=== PATIENT | female | born 1990 | race Caucasian/White ===

== ENCOUNTER → 2016-11-07 | Outpatient (REF) | payer OTHER ==
[~2016-11-07] MED LIST: ACET50TA PO; IBUP60TA PO; VITAPRTA PO
== END ==
LOC: M LAB REF 12:58
PROVIDERS: ATTEND Advanced Practice Midwife
DX: Z86.14 Personal history of Methicillin resistant Staphylococcus aureus infection (principal)

== ENCOUNTER → 2016-11-25 | Outpatient (CLI) | payer OTHER ==
[2016-11-25 19:10] LABS: BASO % 0.3 % (0.0-1.0); EOS # 0.1 K/mm3 (0.0-0.50); EOS % 0.8 % (0.0-3.0); LARGE UNSTAINED CELL # 0.2 K/mm3 (0.0-0.4); LARGE UNSTAINED CELL % 2.1 % (0.0-4.0); LYMPH % 12.3 % (24.0-44.0); MEAN CORPUSCULAR HEMOGLOBIN 30.8 pg (27.0-33.0); MEAN CORPUSCULAR HGB CONC 33.7 g/dl (32.0-36.5); MEAN CORPUSCULAR VOLUME 91.4 fl (80.0-96.0); MONO # 0.6 K/mm3 (0.0-0.8); MONO % 6.7 % (0.0-5.0); NEUTROPHILS # 6.6 K/mm3 (1.8-7.7); NEUTROPHILS % 77.7 % (36.0-66.0); PLATELET COUNT, AUTOMATED 199 k/mm3 (150-450); RED CELL DISTRIBUTION WIDTH 12.1 % (11.5-14.5); WHITE BLOOD COUNT 8.4 K/mm3 (4.0-10.0)
[2016-11-26 08:40] LABS: CONTROL LINE INT CTR LINE PRESENT; HIV SCRN NEGATIVE (NEGATIVE); HIV SCRN1 NEGATIVE (NEGATIVE)
[2016-11-27 09:55] LABS: HBsAg Prenatal NEGATIVE (NEGATIVE)
== END ==
LOC: M SMT 13:31
PROVIDERS: ATTEND Advanced Practice Midwife
DX: Z34.81 Encounter for supervision of other normal pregnancy, first trimester (principal)

== ENCOUNTER → 2017-01-01 | Outpatient (REF) | payer OTHER | LOC: M LAB REF 13:11 | PROVIDERS: ATTEND Advanced Practice Midwife | DX: Z34.82 Encounter for supervision of other normal pregnancy, second trimester (principal) ==

== ENCOUNTER → 2017-01-20 | Outpatient (CLI) | payer OTHER ==
--- NOTE | 2017-01-20 15:20 | REP ---
Clinical: Anatomical evaluation. Comparison: None . Findings: Examination demonstrates a single live intrauterine in transverse (head to the maternal left side) presentation. motion is identified by technologist. Placenta is noted anteriorly and grade zero without evidence for placenta previa or abruption. Amniotic fluid volume is normal. Cervix measures 3.4 cm in length and appears closed. No evidence for nuchal cord. Gestational age by current measurements 18 weeks 4 days with ALLY 06/19/2017 . FHR equals 153 beats per minute. BPD 4.0 cm 18 weeks 0 days HC 15.4 cm 18 weeks 3 days AC 13.4 cm 18 weeks 6 days FL 3.0 cm 19 weeks 2 days HL 2.8 cm 18 weeks 6 days HC/AC ratio 1.15 Estimated weight 265 grams ( 61st percentile). Anatomical assessment demonstrates normal structures including cranium, choroid plexus, cavum, cerebellum/posterior fossa, facial features, lungs, four-chamber heart/right ventricular outflow tracts, diaphragm, stomach, cord insertion/three-vessel cord, kidneys/bladder, spine, and extremities. Limited evaluation of the left cardiac ventricular outflow tract. Impression: Single live intrauterine in transverse lie. With the exception of the left ventricular outflow tract, anatomical assessment is complete and normal. Signed by Gm Booker MD 01/20/2017 03:12 P
== END ==
LOC: M SMT 13:56
PROVIDERS: ATTEND Advanced Practice Midwife
DX: Z36 Encounter for antenatal screening of mother (principal); Z3A.18 18 weeks gestation of pregnancy

== ENCOUNTER → 2017-02-07 | Outpatient (REF) | payer OTHER | LOC: M LAB REF 09:00 | PROVIDERS: ATTEND Advanced Practice Midwife | DX: Z36 Encounter for antenatal screening of mother (principal); Z3A.00 Weeks of gestation of pregnancy not specified ==

== ENCOUNTER → 2017-03-05 | Outpatient (CLI) | payer OTHER ==
--- NOTE | 2017-03-06 05:48 | REP ---
Clinical: Anatomical evaluation. Comparison: 01/20/2017 . Findings: Examination demonstrates a single live intrauterine in cephalic presentation. motion is identified by technologist. Placenta is noted anteriorly and grade zero without evidence for placenta previa or abruption. Amniotic fluid volume is normal. Cervix measures 4.6 cm in length and appears closed. No evidence for nuchal cord. Gestational age by first ultrasound 24 weeks 6 days with ALLY 06/19/2017 . Gestational age by current measurements 24 weeks 0 days with ALLY 06/25/2017 . FHR equals 150 beats per minute. Estimated weight 728 grams ( 41st percentile). Anatomical assessment demonstrates normal structures including cranium, choroid plexus, cavum, cerebellum/posterior fossa, facial features, lungs, four-chamber heart/ventricular outflow tracts, diaphragm, stomach, cord insertion/three-vessel cord, kidneys/bladder, spine, and extremities. Impression: Single live intrauterine in cephalic presentation demonstrating appropriate interval growth. Anatomical assessment is complete and normal. Signed by Gm Booker MD 03/06/2017 05:40 A
== END ==
LOC: M SMT 14:03
PROVIDERS: ATTEND Advanced Practice Midwife
DX: Z36 Encounter for antenatal screening of mother (principal); Z3A.24 24 weeks gestation of pregnancy

== ENCOUNTER → 2017-03-26 | Outpatient (CLI) | payer OTHER ==
[2017-03-26 10:25] LABS: MEAN CORPUSCULAR HEMOGLOBIN 32.8 pg (27.0-33.0); MEAN CORPUSCULAR HGB CONC 34.9 g/dl (32.0-36.5); MEAN CORPUSCULAR VOLUME 93.9 fl (80.0-96.0); RED CELL DISTRIBUTION WIDTH 12.5 % (11.5-14.5); WHITE BLOOD COUNT 10.1 K/mm3 (4.0-10.0)
== END ==
LOC: M LAB 08:48
PROVIDERS: ATTEND Advanced Practice Midwife
DX: Z34.82 Encounter for supervision of other normal pregnancy, second trimester (principal)

== ENCOUNTER → 2017-05-20 | Outpatient (REF) | payer OTHER ==
[~2017-05-20] MED LIST changes: +IBUP-1114 PO; +PRENTAB9 PO
== END ==
LOC: M LAB REF 17:13
PROVIDERS: ATTEND Advanced Practice Midwife
DX: Z36 Encounter for antenatal screening of mother (principal); Z3A.00 Weeks of gestation of pregnancy not specified

== ENCOUNTER 2017-06-12 08:47 | Inpatient (IN) | payer OTHER ==
[2017-06-12] VITALS (10 sets, daily range): BP systolic 110–136; BP diastolic 59–88
[~2017-06-12] VITALS: Ht 142.2 cm; Wt 57.0 kg
[~2017-06-12 08:47] MED LIST changes: -IBUP-1114 PO; -PRENTAB9 PO
[2017-06-12] MEDS ORDERED: OXYTOCIN 30 UNITS IN 0.9% NaCl 500ML IV BAG (J2590) As Ordered ONE (09:27)
[2017-06-12 09:46] LABS: MEAN CORPUSCULAR HEMOGLOBIN 29.4 pg (27.0-33.0); MEAN CORPUSCULAR HGB CONC 34.3 g/dl (32.0-36.5); MEAN CORPUSCULAR VOLUME 85.5 fl (80.0-96.0); RED CELL DISTRIBUTION WIDTH 14.3 % (11.5-14.5); WHITE BLOOD COUNT 14.4 K/mm3 (4.0-10.0)
[2017-06-12] MEDS ORDERED: BUTORPHANOL 2 MG/ML INJ (J0595) IV ONE (10:00)
[2017-06-12] MEDS ORDERED: PROMETHAZINE INJ 25 MG/ML VIAL (J2550) IV ONE (10:00)
[2017-06-12] MEDS ORDERED: NALOXONE INJ 0.4 MG/1 ML VIAL (J2310) As Ordered ONE (10:05)
[2017-06-12] MEDS ORDERED: DIBUCAINE 1% OINTMENT 30GM TOP PRN (10:45)
[2017-06-12] MEDS ORDERED: RHOGAM 300 MCG (1500 IU) INJ (J2790) IM SCH (10:45)
[2017-06-12] MEDS ORDERED: DOCUSATE SODIUM 100 MG CAP PO PRN (10:45)
[2017-06-12] MEDS ORDERED: MOM 30ML SUSPENSION UDC PO PRN (10:45)
[2017-06-12] MEDS ORDERED: METHYLERGONOVINE MALEATE 0.2 MG TAB PO PRN (10:45)
[2017-06-12] MEDS ORDERED: MEASLES,MUMPS,RUBELLA VACCINE INJ (MMR-II) (90707) SC SCH (10:45)
[2017-06-12] MEDS ORDERED: PROMETHAZINE 25 MG TAB PO PRN (10:45)
[2017-06-12] MEDS ORDERED: OXYTOCIN INJ 10 UNITS/ML VIAL (J2590) IM ONE (10:45)
[2017-06-12] MEDS ORDERED: OXYTOCIN DRIP 30 UNITS in APPROPRIATE DILUENT 1 EA IV SCH (11:03)
[2017-06-12] MEDS: PRENATAL VITAMINS CHEWABLE TABLET PO SCH (11:18)
[2017-06-12] MEDS: METHYLERGONOVINE MALEATE 0.2 MG TAB PO SCH ×2 (11:18→18:21)
--- NOTE | 2017-06-12 13:46 | HPE ---
DATE OF ADMISSION: 06/12/2017 CHIEF COMPLAINT: Labor. HISTORY OF PRESENT ILLNESS: The patient is a 26-year-old, (G) 4, para (P) 2-0-1-2, at 39 weeks 3 days gestation with an estimated date of confinement of 06/16/2017 by first trimester ultrasound dated 11/07/2016. She presents complaining of contractions and active labor. She states that her contractions started last night and picked up about an hour before her arrival. They last 45 seconds to 1 minute and are every 3 minutes. She denies leakage of fluid, states that she has been spotting a little bit, but denies discharge. She is feeling the baby move. LABS: Blood type is O positive. She is GBS negative. Rubella immune. HIV negative. Gonorrhea and Chlamydia negative. Hepatitis B antigen negative. VDRL nonreactive. Urine culture showed no growth. Her prepregnancy weight was 106 pounds. Blood pressures in the office have been ranging from 100 to 136 systolic over 60 to 72 diastolic. OB ULTRASOUND: From 03/05/2017, showed anterior placenta without previa or abruption, no abnormalities. PAST OBSTETRICAL HISTORY: 1. In 2011, she delivered a female at 38 weeks gestation via normal spontaneous vaginal delivery weighing 6 pounds 13 ounces. 2. In 2012, she had a miscarriage at 7 weeks. 3. In 2015, she delivered a male at 40 weeks 5 days gestation via normal spontaneous vaginal delivery weighing 7 pounds 12 ounces. PAST MEDICAL HISTORY: None. MEDICATIONS: - Protonix 20 mg daily - prenatals PAST SURGICAL HISTORY: 1. Laparoscopy for ovarian cyst. 2. Two ulnar surgeries right arm. 3. MRSA removal right arm. ALLERGIES: - SULFA MEDICATIONS SOCIAL HISTORY: The patient is single. Denies tobacco, alcohol or drugs. PHYSICAL EXAMINATION: ABDOMEN: Gravid. SVE: 7/100%/bulging bag. FHR: 140 beats per minute, moderate variability, accelerations, no decelerations, Category 1 tracing. TOCO: Contractions every 3 minutes. ASSESSMENT AND PLAN: 1. 26-year-old, G4, P2-0-1-2, at 39 weeks 3 days gestation in active labor. Admit to labor and delivery with routine labs and orders. 2. GBS negative. No antibiotics required. 3. Anticipate spontaneous vaginal delivery. My preceptor for this patient encounter was Lida Ortiz CNM. The preceptor was physically present in the building during the encounter and was fully available. As needed, all aspects of the patient interview, examination, medical decision making process, and medical care plan development were reviewed and approved by the preceptor. The preceptor is aware and concurs with the plan as stated in the body of this note and will attest to such by his/her cosignature. ZAIN
[2017-06-12] MEDS: IBUPROFEN 800 MG TAB PO PRN (15:50)
[2017-06-12] MEDS: ACETAMINOPHEN 500 MG TAB PO PRN (21:34)
[2017-06-13] MEDS: METHYLERGONOVINE MALEATE 0.2 MG TAB PO SCH ×2 (00:32→05:51)
[2017-06-13 06:15] VITALS: BP 132/85
[2017-06-13] MEDS: PRENATAL VITAMINS CHEWABLE TABLET PO SCH (07:42)
[2017-06-13] MEDS: IBUPROFEN 800 MG TAB PO PRN (07:43)
[2017-06-13] MEDS ORDERED: METHYLERGONOVINE MALEATE 0.2 MG TAB PO PRN (12:00)
[2017-06-13 18:16] VITALS: BP 113/73
[2017-06-14] MEDS: ACETAMINOPHEN 500 MG TAB PO PRN (02:07)
[2017-06-14 06:00] VITALS: BP 129/70
[2017-06-14] MEDS: IBUPROFEN 800 MG TAB PO PRN (07:38)
[2017-06-14] MEDS: PRENATAL VITAMINS CHEWABLE TABLET PO SCH (07:38)
[2017-06-14] MEDS ORDERED: ACET50TA PO (09:34)
[2017-06-14] MEDS ORDERED: IBUP-1114 PO (09:34)
[2017-06-14] MEDS ORDERED: PRENTAB9 PO (09:34)
--- NOTE | 2017-06-14 15:57 | DN ---
DATE: 06/12/2017 Artificial rupture of membranes clear fluid 09:37. Fully dilated at 10:12 with spontaneous bearing down efforts. Viable male delivered YANI, compound right posterior arm at 10:17. Spontaneous respirations with stimulation transitioned on maternal abdomen. Cord doubly clamped and cut by grandmother once pulsations ceased. 's 8 and 9. Placenta Brown intact with three-vessel cord at 10:24. Fundus firmed with massage and IM Pitocin 10 units. Perineum is intact. Estimated blood loss 150 mL. weight is pending. Sponge, sharp and instrument count correct. Mom and baby doing well.
== END 2017-06-14 10:30 | disposition home or self-care (01) | DRG 775 ==
LOC: M LDO 08:47 → M LDI 09:19 → EEVIPCON 09:19 → M OBS 12:29
PROVIDERS: ADMIT Advanced Practice Midwife; ATTEND Advanced Practice Midwife
PROC: 10E0XZZ Delivery of Products of Conception, External Approach (ICD-10-PCS; principal; 2017-06-12)
PROC: 10907ZC Drainage of Amniotic Fluid, Therapeutic from Products of Conception, Via Natural or Artificial Opening (ICD-10-PCS; 2017-06-12)
DX: O32.6XX0 Maternal care for compound presentation, not applicable or unspecified (principal); Z3A.39 39 weeks gestation of pregnancy; Z37.0 Single live birth

== ENCOUNTER → 2017-08-19 | Outpatient (CLI) | payer OTHER ==
[~2017-08-19] MED LIST changes: +IBUP-1114 PO; +PRENTAB9 PO
--- NOTE | 2017-08-19 12:52 | REP ---
Right hand four views: There is a nondisplaced fracture at the base of the fifth digit metacarpal. There is no dislocation. The study is otherwise unremarkable. Signed by Philippe Quintero MD 08/19/2017 12:42 P
== END ==
LOC: M WUC 11:15
PROVIDERS: ATTEND Physician Assistant
DX: S62.306A Unspecified fracture of fifth metacarpal bone, right hand, initial encounter for closed fracture (principal); X58.XXXA Exposure to other specified factors, initial encounter; Y92.89 Other specified places as the place of occurrence of the external cause; Y93.89 Activity, other specified; Y99.8 Other external cause status

== ENCOUNTER → 2017-11-24 | Outpatient (REF) | payer OTHER ==
[2017-11-24 23:39] LABS: CHLAMYDIA DNA AMPLIFICATION NEGATIVE (NEGATIVE); GC DNA AMPLIFICATION NEGATIVE (NEGATIVE)
== END ==
LOC: M LAB REF 17:24
DX: R30.0 Dysuria (principal)

== ENCOUNTER → 2018-11-02 | Outpatient (REF) | payer OTHER, MEDICAID ==
[~2018-11-02] MED LIST changes: -ACET50TA PO; +MAPA500T2 PO
[2018-11-02 18:06] LABS: BASO % 0.7 % (0.0-1.0); EOS # 0.2 10^3/uL (0.0-0.50); HEMATOCRIT 43.6 % (36.0-47.0); LYMPH # 2.1 10^3/uL (1.5-6.5); LYMPH % 33.9 % (24.0-44.0); MEAN CORPUSCULAR HEMOGLOBIN 32.1 pg (27.0-33.0); MEAN CORPUSCULAR HGB CONC 34.4 g/dl (32.0-36.5); MEAN CORPUSCULAR VOLUME 93.2 fl (80.0-96.0); MONO # 0.5 10^3/uL (0.0-0.8); MONO % 7.8 % (0.0-5.0); NEUTROPHILS # 3.3 10^3/uL (1.8-7.7); NEUTROPHILS % 54.4 % (36.0-66.0); PLATELET COUNT, AUTOMATED 184 10^3/uL (150-450); RED BLOOD COUNT 4.68 10^6/uL (4.00-5.40); WHITE BLOOD COUNT 6.1 10^3/uL (4.0-10.0)
[2018-11-02 18:15] LABS: ALBUMIN 4.4 GM/DL (3.2-5.2); ALT/SGPT 24 U/L (12-78); BILIRUBIN,TOTAL 0.8 MG/DL (0.2-1.0); BLOOD UREA NITROGEN 13 MG/DL (7-18); CALCIUM LEVEL 8.6 MG/DL (8.5-10.1); CARBON DIOXIDE LEVEL 26 MEQ/L (21-32); CHLORIDE LEVEL 106 MEQ/L (98-107); CHOLESTEROL LEVEL 185 MG/DL (<200); CHOLESTEROL RISK RATIO 3.245 (<5); CREATININE FOR GFR 0.63 MG/DL (0.55-1.30); GLOMERULAR FILTRATION RATE > 60.0 (>60); GLUCOSE, FASTING 82 MG/DL (70-100); HDL CHOLESTEROL 57 MG/DL (>40); LDL CHOLESTEROL 115 MG/DL (<100); NON-HDL-C 128 MG/DL; POTASSIUM SERUM 4.4 MEQ/L (3.5-5.1); SODIUM LEVEL 138 MEQ/L (136-145); THYROID STIMULATING HORMONE 0.309 uIU/ML (0.358-3.740); TOTAL PROTEIN 8.1 GM/DL (6.4-8.2); TRIGLYCERIDES LEVEL 65 MG/DL (<150)
[2018-11-02 18:18] LABS: TOTAL 25(OH) VITAMIN D 26.1 NG/ML (30.0-100.0)
[2018-11-02 18:27] LABS: HEMOGLOBIN A1c 4.6 %
== END ==
LOC: M LAB REF 17:32
PROVIDERS: ATTEND Nurse Practitioner Family
DX: Z13.9 Encounter for screening, unspecified (principal)

== ENCOUNTER → 2018-11-10 | Outpatient (CLI) | payer OTHER ==
--- NOTE | 2018-11-13 10:20 | SLEEPHOME ---
DATE OF STUDY: 11/10/2018 ORDERED BY: Dr. Laurent Diagnostic home sleep testing was performed for evaluation in light of concern for the obstructive sleep apnea syndrome in this patient with history of excessive somnolence and nonrestorative sleep. For testing a nocturnal T3 respiratory monitoring device was used. Continuous record was made of pulse, oxygen saturation, airflow, chest and abdominal strain, and body position. 9 hours and 59 minutes of data were reviewed. There were 8 hours 24 minutes marked as time in bed. During the interval marked time in bed there only 7 respiratory events identified of 10 seconds in duration or greater for a respiratory event index well within normal limits at 0.8. The events that were seen were both mixed and obstructive. The baseline pulse rate was 74 beats per minute, pulse rate range was 59-170. Baseline saturation 96%, pulse oxygen saturation appreciated 93%. Testing was performed in both the supine and nonsupine positions. Snoring was noted over the course of study. IMPRESSION: Normal diagnostic home sleep testing with snoring. No recommendations.
== END ==
LOC: M SLEEP HO 14:04
PROVIDERS: ATTEND Internal Medicine Pulmonary Disease
DX: R06.83 Snoring (principal)

== ENCOUNTER → 2019-02-02 | Outpatient (CLI) | payer OTHER ==
[~2019-02-02] MED LIST changes: +IBUP600T42 PO; -IBUP60TA PO
--- NOTE | 2019-02-04 07:48 | SLEEPMSLT ---
DATE OF PROCEDURE: 02/02/2019 ORDERING PROVIDER: Dr. Mary Lou Laurent, copy to Cookie Bolivar NP INTERPRETATION: Nocturnal polysomnography was followed by multiple sleep latency testing for evaluation of sleep physiology in this patient with a history of excessive somnolence, morning headaches, nonrestorative sleep, who has had a reasonably normal home sleep test result. During the nocturnal portion of testing 7 hours and 16 of data were reviewed. There were 414 minutes of sleep identified. Sleep latency was short at 1 minute. REM latency was similarly short at 68 minutes. Sleep architecture was fairly good with 5 REM cycles, minimal fragmentation. Overall efficiency was 96.5%. The electrocardiogram showed a sinus rhythm with an average heart rate of 70 beats per minute. Rate ranged 60-90 beats per minute. EEG showed normal waveforms for awake and sleep stages. No focal events were identified with only one respiratory events identified of 10 seconds in duration or greater for an apnea-hypopnea index well within normal limits of 0.1. There was some snoring identified. However arousals from respiratory events were seen only 0.6 times per hour. There was activity noted in the limb leads. No trains of events were identified and limb movement arousal index of 3.2 per hour. Oxygen saturations remained 90% plus. Nocturnal polysomnography was followed by multiple sleep latency testing. Five nap opportunities were offered at 2-hour intervals. Sleep was achieved on five of five nap opportunities with a mean sleep latency of 5 minutes and sleep onset REM was appreciated on three of the nap opportunities. IMPRESSION: Normal nocturnal polysomnography with short sleep latency on multiple sleep latency testing and three sleep onset REM. Drug panel testing was performed but results are pending at the time of this dictation. These results collaborate patient's history of excessive somnolence and with the sleep onset REM periods, would support clinical diagnosis of narcolepsy.
== END ==
LOC: M SLEEP 19:56
PROVIDERS: ATTEND Internal Medicine Pulmonary Disease
DX: G47.00 Insomnia, unspecified (principal)

== ENCOUNTER → 2019-04-15 | Outpatient (REF) | payer OTHER ==
[2019-04-15 18:11] LABS: CHLAMYDIA DNA AMPLIFICATION NEGATIVE (NEGATIVE); GC DNA AMPLIFICATION NEGATIVE (NEGATIVE)
== END ==
LOC: M LAB REF 16:32
PROVIDERS: ATTEND Physician Assistant
DX: Z11.3 Encounter for screening for infections with a predominantly sexual mode of transmission (principal)

== ENCOUNTER → 2019-08-31 | Outpatient (REF) | payer OTHER, MEDICAID ==
[2019-08-31 16:26] LABS: FREE T4 1.02 NG/DL (0.76-1.46); THYROID STIMULATING HORMONE 0.251 uIU/ML (0.358-3.740)
[2019-08-31 16:31] LABS: TOTAL T3 131.4 NG/DL (60.0-181.0)
== END ==
LOC: M LAB REF 15:06
PROVIDERS: ATTEND Nurse Practitioner Family
DX: F41.1 Generalized anxiety disorder (principal); Z13.9 Encounter for screening, unspecified

== ENCOUNTER → 2019-09-30 | Outpatient (REF) | payer OTHER | LOC: M LAB REF 12:15 | PROVIDERS: ATTEND Nurse Practitioner Family | DX: R11.2 Nausea with vomiting, unspecified (principal) ==

== ENCOUNTER → 2019-11-30 | Outpatient (REF) | payer OTHER | LOC: M LAB REF 17:33 | PROVIDERS: ATTEND Nurse Practitioner Family | DX: E05.90 Thyrotoxicosis, unspecified without thyrotoxic crisis or storm (principal) ==

== ENCOUNTER → 2020-02-29 | Outpatient (CLI) | payer OTHER ==
--- NOTE | 2020-03-01 02:02 | REP ---
Clinical: Right foot pain Technique: AP, lateral, bilateral oblique views right foot . Findings: The osseous structures and joint spaces are intact and normal. There is no evidence for acute fracture or dislocation. Surrounding soft tissues are unremarkable. No subcutaneous emphysema or radiodense foreign body. Impression: Normal age appropriate right foot series. No acute fracture or dislocation. Electronically Signed by Gm Booker MD 03/01/2020 01:53 A
== END ==
LOC: M RAD 17:44
PROVIDERS: ATTEND Nurse Practitioner Family
DX: M79.671 Pain in right foot (principal)

== ENCOUNTER → 2020-03-01 | Outpatient (CLI) | payer OTHER ==
[2020-03-01 12:32] LABS: FREE T4 1.09 NG/DL (0.76-1.46); THYROID STIMULATING HORMONE 0.622 uIU/ML (0.358-3.740); TOTAL T3 100.5 NG/DL (60.0-181.0)
== END ==
LOC: M LAB 11:10
PROVIDERS: ATTEND Nurse Practitioner Family
DX: R94.6 Abnormal results of thyroid function studies (principal)

== ENCOUNTER 2020-06-16 13:23 | Emergency (ER) | payer OTHER ==
[~2020-06-16] VITALS: Ht 142.2 cm; Wt 49.7 kg
[2020-06-16 14:23] LABS: BASO % 0.5 % (0.0-1.0); EOS # 0.2 10^3/uL (0.0-0.5); EOS % 1.9 % (0.0-3.0); LYMPH # 1.2 10^3/uL (1.5-5.0); MEAN CORPUSCULAR VOLUME 91.3 fl (80.0-96.0); MONO # 0.7 10^3/uL (0.0-0.8); MONO % 8.3 % (0.0-5.0); NEUTROPHILS # 6.7 10^3/uL (1.5-8.5); PLATELET COUNT, AUTOMATED 195 10^3/uL (150-450); RED BLOOD COUNT 4.38 10^6/uL (4.00-5.40); WHITE BLOOD COUNT 8.9 10^3/uL (4.0-10.0)
--- NOTE | 2020-06-16 14:46 | REPVR ---
PROCEDURE INFORMATION: Exam: US First Trimester, Transabdominal Exam date and time: 06/16/2020 2:05 PM Age: 30 years old Clinical indication: Lmp or gestational age (in weeks): 10w0d; Antepartum complications; Bleeding; ; Additional info: Vaginal bleeding TECHNIQUE: Imaging protocol: Real-time transabdominal obstetrical ultrasound of the maternal pelvis and a first trimester , less than 14 weeks 0 days, with image documentation. COMPARISON: No relevant prior studies are available. FINDINGS: Last menstrual period: 04/07/20. Estimated gestational age (LMP) = 10 weeks 0 days. Estimated due date (LMP) = 01/12/21. Gestation: Intrauterine gestation. Embryonic/ heart rate: 171 bpm. Placenta: . Unremarkable. No subchorionic bleed. Amniotic fluid: Amniotic fluid is normal for gestational age. BIOMETRY: Gestational age (AUA): 10 weeks 1 day. Estimated due date (AUA): 01/11/21. Mean sac diameter: 47.0 mm = 10 weeks 2 days. [place]-Rump length: 32.1 mm = 10 weeks 1 day. MATERNAL: Uterus: 11.7 x 7.4 x 9.4 cm. Anteverted. A intramural/subserosal fibroid in the anterior uterus is 3.1 x 2.8 x 2.1 cm. Cervix: Unremarkable. Closed. Right adnexa: Unremarkable. The right ovary is 3.5 x 1.9 x 1.6 cm. RI is 0.53 Left adnexa: Unremarkable. The left ovary is 3.1 x 2.2 x 2.1 cm. . RI is 0.61. Intraperitoneal space: No free fluid. IMPRESSION: 1. No cause for vaginal bleeding is identified. No subchorionic bleed is identified. 2. Size and dates are concordant within 1 day. 3. Ultrasound gestational age is 10 weeks 1 day. 4. Ultrasound due date is 01/11/21. 5. A intramural/subserosal fibroid in the anterior uterus is 3.1 x 2.8 x 2.1 cm. 6. The ovaries are unremarkable. Electronically signed by: Killian Valencia On 06/16/2020 14:46:16 PM
[2020-06-16 14:58] LABS: BLOOD UREA NITROGEN 7 MG/DL (7-18); CALCIUM LEVEL 8.7 MG/DL (8.5-10.1); CARBON DIOXIDE LEVEL 26 MEQ/L (21-32); CHLORIDE LEVEL 107 MEQ/L (98-107); CREATININE FOR GFR 0.46 MG/DL (0.55-1.30); GLOMERULAR FILTRATION RATE > 60.0 (>60); GLUCOSE, FASTING 96 MG/DL (70-100); HCG, SERUM QUANTITATIVE 154864 MIU/ML; POTASSIUM SERUM 4.1 MEQ/L (3.5-5.1); SODIUM LEVEL 135 MEQ/L (136-145)
[2020-06-16] MEDS: METOCLOPRAMIDE 10 MG TAB PO ONE (15:34)
[2020-06-16] MEDS ORDERED: BUSP1TAB PO (16:35)
[2020-06-16] MEDS ORDERED: PROZ20CA11 PO (16:35)
[2020-06-16] MEDS: busPIRone 5 MG TAB PO ONE (16:48)
[2020-06-16] MEDS: SERTRALINE HCL 25 MG TABLET PO ONE (16:48)
[2020-06-16 17:09] LABS: CHLAMYDIA DNA AMPLIFICATION NEGATIVE (NEGATIVE); GC DNA AMPLIFICATION NEGATIVE (NEGATIVE)
[2020-06-16 17:41] VITALS: BP 118/63
== END 2020-06-16 17:42 | disposition home or self-care (01) ==
LOC: M ED 13:23
DX: O20.9 Hemorrhage in early pregnancy, unspecified (principal); O99.341 Other mental disorders complicating pregnancy, first trimester; F41.9 Anxiety disorder, unspecified; F32.9 Major depressive disorder, single episode, unspecified; Z87.42 Personal history of other diseases of the female genital tract; Z88.2 Allergy status to sulfonamides; Z3A.10 10 weeks gestation of pregnancy

== ENCOUNTER → 2020-06-20 | Outpatient (CLI) | payer OTHER ==
[~2020-06-20] MED LIST changes: +BUSP1TAB PO; +PROZ20CA11 PO
[2020-06-20 20:15] LABS: BASO % 0.3 % (0.0-1.0); EOS # 0.2 10^3/uL (0.0-0.5); EOS % 2.1 % (0.0-3.0); HEMATOCRIT 38.7 % (36.0-47.0); HEMOGLOBIN 13.9 g/dl (12.0-15.5); LYMPH # 1.7 10^3/uL (1.5-5.0); LYMPH % 15.7 % (24.0-44.0); MEAN CORPUSCULAR HEMOGLOBIN 33.3 pg (27.0-33.0); MEAN CORPUSCULAR HGB CONC 35.9 g/dl (32.0-36.5); MEAN CORPUSCULAR VOLUME 92.8 fl (80.0-96.0); MONO # 0.9 10^3/uL (0.0-0.8); MONO % 7.9 % (0.0-5.0); NEUTROPHILS # 8.1 10^3/uL (1.5-8.5); NEUTROPHILS % 73.5 % (36.0-66.0); PLATELET COUNT, AUTOMATED 194 10^3/uL (150-450); RED BLOOD COUNT 4.17 10^6/uL (4.00-5.40); WHITE BLOOD COUNT 10.9 10^3/uL (4.0-10.0)
[2020-06-20 21:19] LABS: HEPATITIS C VIRUS ABY INDEX 0.2 INDEX (<0.8); HIV 1&2 SCREEN CENTAUR NEGATIVE (NEGATIVE)
[2020-06-20 21:52] LABS: CHLAMYDIA DNA AMPLIFICATION NEGATIVE (NEGATIVE); GC DNA AMPLIFICATION NEGATIVE (NEGATIVE)
== END ==
LOC: M PLALAB 15:00
PROVIDERS: ATTEND Advanced Practice Midwife
DX: Z34.91 Encounter for supervision of normal pregnancy, unspecified, first trimester (principal)

== ENCOUNTER → 2020-08-18 | Outpatient (CLI) | payer OTHER ==
--- NOTE | 2020-08-18 14:22 | REP ---
INDICATION: ANATOMY COMPARISON: None. TECHNIQUE: Transabdominal obstetrical ultrasound with color Doppler evaluation. FINDINGS: Examination demonstrates a single live intrauterine in variable presentation. motion is identified by technologist. Placenta is noted anterior and grade 1 without evidence for placenta previa or abruption. Amniotic fluid volume is normal. Cervix measures 4.0 cm in length and appears closed.. Gestational age by LMP 19 weeks 0 days with ALLY 01/12/2021. Gestational age by current measurements 19 weeks 2 days with ALLY 01/10/2021. FHR equals 147 beats per minute. BPD: 4.6 cm 19 weeks 6 days HC: 16.8 cm 19 weeks 3 days AC: 14.1 cm 19 weeks 4 days FL: 2.9 cm 18 weeks 6 days HL: 2.8 cm 18 weeks 6 days HC/AC: 1.19 Estimated weight 284 grams (62ndpercentile). Anatomical assessment demonstrates normal structures including cranium, choroid plexus, cavum, cerebellum/posterior fossa, facial features, lungs, four-chamber heart/ventricular outflow tracts, diaphragm, stomach, cord insertion/three-vessel cord, kidneys/bladder, spine, and extremities. IMPRESSION: Fetus in variable presentation demonstrating appropriate interval growth and estimated weight. Anatomical assessment is complete and normal. <Electronically signed by Gm Booker > 08/18/20 [id number]
== END ==
LOC: M WHC 12:32
PROVIDERS: ATTEND Advanced Practice Midwife
DX: Z36.89 Encounter for other specified antenatal screening (principal); Z3A.19 19 weeks gestation of pregnancy

== ENCOUNTER → 2020-12-01 | Outpatient (CLI) | payer OTHER ==
--- NOTE | 2020-12-02 04:17 | REP ---
INDICATION: SIZE GREATER THAN DATES,EFW,GABBIE COMPARISON: 08/18/2020 TECHNIQUE: Transabdominal obstetrical ultrasound with color Doppler evaluation. FINDINGS: Examination demonstrates a single live intrauterine in cephalic presentation. motion is identified by technologist. Placenta is noted anterior and grade 2 without evidence for placenta previa or abruption. Amniotic fluid volume is normal. Cervix measures 3.1 cm in length and appears closed.. Gestational age by LMP 34 weeks 0 days with ALLY 01/12/2021. Gestational age by current measurements 34 weeks 2 days with ALLY 01/10/2021. FHR equals 149 beats per minute. BPD: 8.5 cm 34 weeks 1 day HC: 31.6 cm 35 weeks 4 days AC: 31.2 cm 35 weeks 1 day FL: 6.6 cm 33 weeks 6 days HL: 5.6 cm 32 weeks 3 days HC/AC: 1.01 Estimated weight 2500 grams (65thpercentile). GABBIE: 25.3 cm IMPRESSION: 1. Single live intrauterine in cephalic presentation demonstrating appropriate estimated weight and growth. 2. Amniotic fluid index suggest polyhydramnios. <Electronically signed by Gm Booker > 12/02/20 [id number]
== END ==
LOC: M WHC 13:38
PROVIDERS: ATTEND Advanced Practice Midwife
DX: O26.849 Uterine size-date discrepancy, unspecified trimester (principal); Z3A.34 34 weeks gestation of pregnancy

== ENCOUNTER → 2020-12-13 | Outpatient (REF) | payer OTHER | LOC: M SFHCWAGY 16:54 | PROVIDERS: ATTEND Specialist | DX: Z34.83 Encounter for supervision of other normal pregnancy, third trimester (principal) ==

== ENCOUNTER 2021-01-02 07:21 | Inpatient (IN) | payer OTHER ==
[2021-01-02] VITALS (11 sets, daily range): BP systolic 113–131; BP diastolic 59–76
[~2021-01-02] VITALS: Ht 142.2 cm; Wt 60.4 kg
[2021-01-02] MEDS ORDERED: PRENTAB9 PO (07:46)
[2021-01-02] MEDS ORDERED: TUMS750C22 PO (07:47)
[2021-01-02] MEDS ORDERED: LR 1,000 ML IV SCH ×2 (08:41→20:49)
[2021-01-02] MEDS ORDERED: LACTATED RINGER'S 1000 ML IV STA (08:41)
[2021-01-02] MEDS ORDERED: miSOPROStol 50MCG 1/2 TABLET SL SCH (08:45)
--- NOTE | 2021-01-02 09:42 | HPEPDOC ---
Obstetrical History & Physical General Date of Admission Jan 02, 2021 at 07:21 History of Present Illness 30-year-old at 38+4 weeks gestation. Presents for an induction of labor. Indication for induction:. Severe polyhydramnios/symptomatic. Patient complains of chronic shortness of breath and abdominal pain, severely limiting her ability to carry on with daily functioning. She denies vaginal bleeding, loss of fluid or painful, frequent uterine contractions. She reports regular movement. She denies headache, visual changes, right upper quadrant pain, chest pain. course: Severe polyhydramnios/symptomatic PMH: depression/anxiety SH: cystectomy/I&D Meds: vitamin, Buspirone 7.5mg daily, Fluoxetine 10mg daily, Zofran 4mg, Pepcid 20mg qd All: [employer]: No STI or dysplasia OB: uncomplicated x 3 (2011, 2015, 2016). Largest 7lbs 13oz. Sochx: No tobacco, alcohol or drug use FamHx: HTN, HLD, Endometrial CA, CVA labs: Blood type O+, antibody screen negative, HepBsAg neg, HIV neg, rubella immune, Hep C antibody negative, RPR nonreactive, CT/GC neg, urine culture negative, 1 hour glucose challenge test 110, GBS negative. Imaging: Polyhydramnios, no anomalies. Past Medical History Allergies Coded Allergies: Sulfa (Sulfonamide Antibiotics) (Verified Allergy, Mild, HIVES, 06/16/20) Medications Scheduled Buspirone HCl (Buspirone HCl) 7.5 Mg Tablet, 1 TAB PO BID Calcium Carbonate (Tums) 300 Mg Tab.chew, 2 TAB PO BID Fluoxetine HCl (Prozac) 20 Mg Capsule, 1 CAP PO DAILY No.137/Iron/Folic Acd ( Vitamin Tablet) 1 Each Tablet, 1 TAB PO DAILY Physical Examination Physical Examination GENERAL: Alert and oriented times three. BREAST: . ABDOMEN: Gravid and non-tender to touch. FETUS: Is vertex (VTX) by sterile vaginal examination (SVE), fetus is vertex (VTX) by Hugh. HEART RATE: Regular rate and rhythm. LUNGS: Clear to auscultation (CTA). EXTREMITIES: No edema. No clonus. SVE: 1cm/75%/-3, cephalic (confirmed by AUS) EFM: Cat I [place]: irregular ctxs Vital Signs/I&O Vital Signs Date Time Temp Pulse Resp B/P (MAP) Pulse Ox O2 Delivery O2 Flow Rate FiO2 01/02/21 08:16 99.6 100 18 119/67 (84) 97 Room Air Laboratory Data 24H LABS Laboratory Tests 2 01/02/21 07:36: Serology Scanned Report Hepatitis B Testing Assessment/Plan Assessment 30-year old at 38+4 weeks gestation. Dx: Severe polyh ydramnios/symptomatic. Reassuring status. Plan Admit and orient. Routine labs/orders Start with cervical ripening via misoprostol 50mcg SL every 4-6 hours until cervix is favorable. Counseled on Pitocin and induction of labor (IOL). Mode of delivery plan: ; as indicated. BETTIE CALVILLO DO Jan 02, 2021 09:42
[2021-01-02 10:34] LABS: HEMOGLOBIN 11.5 g/dl (12.0-15.5); MEAN CORPUSCULAR HGB CONC 31.9 g/dl (32.0-36.5); MEAN CORPUSCULAR VOLUME 84.5 fl (80.0-96.0); PLATELET COUNT, AUTOMATED 203 10^3/uL (150-450); RED BLOOD COUNT 4.26 10^6/uL (4.00-5.40); WHITE BLOOD COUNT 11.5 10^3/uL (4.0-10.0)
[2021-01-02] MEDS ORDERED: OXYTOCIN DRIP 30 UNITS in IV 1 EA IV SCH ×3 (16:55→21:23)
--- NOTE | 2021-01-02 16:57 | IPNPDOC ---
Obstetrical Progress Note Date of Service Jan 02, 2021 Subjective Patient starting to feel contractions more frequently and uncomfortably. Coping well. No LOF/VB. Objective Vital Signs Date Time Temp Pulse Resp B/P (MAP) Pulse Ox O2 Delivery O2 Flow Rate FiO2 01/02/21 15:44 82 18 123/65 (84) 01/02/21 12:58 98.5 01/02/21 08:16 97 Room Air Assessment Heart Rate Tracing: Category I Tocometer Contractions: Yes Frequency: every 2-5 min. Sterile Vaginal Examination Dilation: 3 cm Effacement (%): 70% Station: -3 Cervical Consistency: Soft Cervical Position: Anterior Postion/Presentation: Cephalic presentation Assessment and Plan Status: Reassuring Anticipate: Vaginal Delivery Additional Comments Reassuring maternal and status. Favorable cervix. Start Pitocin per low dose protocol. BETTIE CALVILLO DO Jan 02, 2021 16:57
--- NOTE | 2021-01-02 19:48 | IPNPDOC ---
Obstetrical Progress Note Date of Service Jan 02, 2021 Subjective Patient reported large loss of fluid. This was immediately followed by the patient experiencing chest discomfort. No shortness of breath. No vaginal bleeding. Patient states she is feeling contractions more painfully. Objective 100% SpO2 at time of assessment. Mild HTN. HR 120-140 Vital Signs Date Time Temp Pulse Resp B/P (MAP) Pulse Ox O2 Delivery O2 Flow Rate FiO2 01/02/21 18:34 99.0 75 18 122/76 (91) 01/02/21 08:16 97 Room Air Assessment Heart Rate Tracing: Category I Tocometer Contractions: Yes Frequency: every 2-5 min. Strength: palpated as moderate Sterile Vaginal Examination Dilation: 4 cm Effacement (%): 100% Station: -2 (Umbilical cord NOT palpated.) Cervical Consistency: Soft Cervical Position: Anterior Postion/Presentation: Cephalic presentation Assessment and Plan Status: Reassuring Anticipate: Vaginal Delivery Additional Comments Chest discomfort subsiding. HR improving to 100-120bpm; O2 sat 100%. Closely monitor patient's vitals and symptoms. Currently stable. Reassuring maternal status. BETTIE CALVILLO DO Jan 02, 2021 19:47
[2021-01-02] MEDS ORDERED: IBUPROFEN 600MG TAB PO PRN (20:50)
[2021-01-02] MEDS ORDERED: ONDANSETRON 4MG/2ML VIAL IV PRN (20:50)
[2021-01-02] MEDS ORDERED: ACETAMINOPHEN 500 MG TAB PO PRN (20:50)
[2021-01-02] MEDS ORDERED: IBUPROFEN 800 MG TAB PO PRN (20:50)
[2021-01-02] MEDS ORDERED: ACETAMINOPHEN TAB 650MG DOSE (2X325MG) PO PRN (20:50)
[2021-01-02] MEDS ORDERED: RHOGAM 300 MCG (1500 IU) INJ (J2790) IM SCH (20:50)
[2021-01-02] MEDS ORDERED: DOCUSATE SODIUM 100MG CAPSULE PO PRN (20:50)
[2021-01-02] MEDS ORDERED: MEASLES,MUMPS,RUBELLA VACCINE INJ (MMR-II) (90707) SC SCH (20:50)
[2021-01-02] MEDS ORDERED: DIBUCAINE 1% OINTMENT 30GM TOP PRN (20:50)
[2021-01-02] MEDS ORDERED: MORPHINE 4 MG/ML 1ML VIAL/SYRINGE (J2270) IV ONE (20:55)
[2021-01-02] MEDS ORDERED: METHYLERGONOVINE MALEATE 0.2 MG/ML VIAL (J2210) IM ONE (20:55)
[2021-01-02] MEDS ORDERED: OXYTOCIN 30 UNITS IN 0.9% NaCl 500ML IV BAG (J2590) As Ordered ONE ×2 (21:07→21:41)
[2021-01-02 21:21] LABS: CORD GAS ABE V -8.3; CORD GAS HCO3 V 21.9 MEQ/L; CORD GAS PCO2 V 65.6 mmHg; CORD GAS PH V 7.142 UNITS; CORD GAS PO2 V 29.9 mmHg; CORD GAS TCO2 V 23.9 MEQ/L
[2021-01-02 21:22] LABS: CORD GAS ABE A -12.8; CORD GAS HCO3 A 18.1 MEQ/L; CORD GAS O2 SAT A 92.4 %; CORD GAS PCO2 A 62.1 mmHg; CORD GAS PH A 7.082 UNITS; CORD GAS PO2 A 67.6 mmHg; CORD GAS SBC A 14.7 MEQ/L
--- NOTE | 2021-01-02 21:22 | DNPDOC ---
[facility] Delivery Note Delivery Note DATE OF DELIVERY: 01/02/2021 TIME OF DELIVERY: 2028 Spontaneous vaginal delivery. PET GROOMER: Dr. Narendra Meng DO FACOG ANESTHESIA: None LACERATION:. None ESTIMATED BLOOD LOSS: 2000 mL. FINDINGS: 7 pound 15 ounce (3600g) Male infant, Score 6 and 7. DELIVERY SUMMARY: The active phase and second stage of labor progressed in normal fashion. She received Pitocin augmentation throughout her labor course. The head delivered in the TRAVIS position, and restituted LOT. No nuchal cord was noted. The anterior shoulder delivered with gentle downward guidance and the remainder of the body delivered with ease. The baby was placed on the patient's chest. Delayed cord clamping occurred for approximately 1 minute. The cord was then doubly clamped and cut. IV Pitocin was bolused to actively manage the th ird stage of labor. The placenta delivered intact without any difficulty within 10 minutes of delivery. The cervix, vagina, vulva and perineum were inspected. No laceration was noted. COMPLICATOIN: Heavy uterine bleeding / hemorrhage was noted despite several doses of uterotonics and continual uterine fundal massage. A total of 60U Pitocin, 0.2mg IM Methergine, 0.25mg IM Hemabate x 3, Cytotec NM 1000mcg, and TXA 1g IV were administered. A Rodrigues was inserted during this process. Transfusion of 2 U prbc was initiated. With repetitive uterine fundal massage, the patient continued to express bright red blood (no blood clots). Her vitals were significant for tachycardia, but the patient remained normotensive with normal O2 saturation while in the L&D room. She remained alert and oriented throughout our efforts to reduce her uterine bleeding. The OR / Anesthesia / Nursing staff were notified of the need to proceed to the Main OR for further evaluation. I consented the patient for a peripartum hysterectomy in the event that significant bleeding continued. See Operative Note DO BLACK Pelletier JONATHAN R. DO Jan 02, 2021 21:22
[2021-01-02] MEDS ORDERED: CARBOPROST TROMETHAMINE 250 MCG/ML AMP As Ordered ONE (21:23)
[2021-01-02] MEDS ORDERED: CARBOPROST TROMETHAMINE 250 MCG/ML AMP IM ONE (21:25)
[2021-01-02] MEDS ORDERED: TRANEXAMIC ACID 100 MG/ML 10ML VIAL As Ordered ONE (21:29)
[2021-01-02] MEDS ORDERED: PROMETHAZINE INJ 25 MG/ML VIAL (J2550) IV ONE (21:40)
[2021-01-02 21:58] LABS: MEAN CORPUSCULAR HEMOGLOBIN 26.8 pg (27.0-33.0); MEAN CORPUSCULAR HGB CONC 31.4 g/dl (32.0-36.5); MEAN CORPUSCULAR VOLUME 85.3 fl (80.0-96.0); PLATELET COUNT, AUTOMATED 148 10^3/uL (150-450); WHITE BLOOD COUNT 23.3 10^3/uL (4.0-10.0)
[2021-01-02 22:01] LABS: HEMOGLOBIN 9.1 g/dl (12.0-15.5)
[2021-01-02 22:13] LABS: INR 3.69; PROTHROMBIN TIME 37.5 SECONDS (12.5-14.3)
[2021-01-02 22:14] LABS: PARTIAL THROMBOPLASTIN TIME 49.4 SECONDS (24.2-38.5)
[2021-01-02 22:34] LABS: FIBRINOGEN < 60 MG/DL (221-452)
[2021-01-02] MEDS ORDERED: LIDOCAINE 2% 100MG/5ML SDV (FOR ANES.) As Ordered ONE (22:37)
[2021-01-02] MEDS ORDERED: propofoL 200 MG/20 ML VIAL As Ordered ONE (22:37)
[2021-01-02] MEDS ORDERED: PHENYLephrine 500MCG 5ML (100MCG/ML) SYRINGE As Ordered ONE ×2 (22:37→22:39)
[2021-01-02] MEDS ORDERED: SUCCINYLCHOLINE 100 MG/5 ML SYRINGE (J0330) As Ordered ONE (22:37)
[2021-01-02] MEDS ORDERED: fentaNYL 100 MCG/2 ML INJECTION (J3010) As Ordered ONE (22:37)
[2021-01-02] MEDS ORDERED: MIDAZOLAM INJ 2MG/2ML VIAL (J2250 PER 1MG) As Ordered ONE (22:37)
[2021-01-02] MEDS ORDERED: dexameTHASONE 4 MG/ML 1ML VIAL (J1100 PER 1MG) As Ordered ONE (22:37)
[2021-01-02] MEDS ORDERED: ROCURONIUM BROMIDE 50 MG/5 ML VIAL As Ordered ONE (22:37)
[2021-01-02] MEDS ORDERED: ceFAZolin 2 GM/D5W 50 ML IV BAG (J0690 PER 500MG) As Ordered ONE (22:39)
[2021-01-02] MEDS ORDERED: VASOPRESSIN INJ 20 UNITS/ML VIAL As Ordered ONE (22:46)
[2021-01-02] MEDS ORDERED: ONDANSETRON 4MG/2ML VIAL As Ordered ONE (22:49)
[2021-01-02 23:32] LABS: HEMOGLOBIN 9.8 g/dl (12.0-15.5); MEAN CORPUSCULAR HEMOGLOBIN 27.8 pg (27.0-33.0); MEAN CORPUSCULAR HGB CONC 31.6 g/dl (32.0-36.5); MEAN CORPUSCULAR VOLUME 87.8 fl (80.0-96.0); PLATELET COUNT, AUTOMATED 105 10^3/uL (150-450); RED BLOOD COUNT 3.53 10^6/uL (4.00-5.40); WHITE BLOOD COUNT 18.2 10^3/uL (4.0-10.0)
[2021-01-03] VITALS (9 sets, daily range): BP systolic 106–152; BP diastolic 58–99
[2021-01-03] MEDS ORDERED: HYDROmorphone HCL 2 MG/ML 1ML VIAL (J1170) As Ordered ONE (00:43)
[2021-01-03 00:51] LABS: HEMATOCRIT 25.5 % (36.0-47.0); MEAN CORPUSCULAR HEMOGLOBIN 28.9 pg (27.0-33.0); MEAN CORPUSCULAR HGB CONC 31.4 g/dl (32.0-36.5); MEAN CORPUSCULAR VOLUME 92.1 fl (80.0-96.0); RED BLOOD COUNT 2.77 10^6/uL (4.00-5.40); WHITE BLOOD COUNT 19.1 10^3/uL (4.0-10.0)
[2021-01-03] MEDS ORDERED: SUGAMMADEX SODIUM 500 MG/5 ML VIAL (BRIDION) As Ordered ONE (00:51)
[2021-01-03 00:52] LABS: PLATELET COUNT, AUTOMATED 89 10^3/uL (150-450)
[2021-01-03 00:54] LABS: INR 3.67; PROTHROMBIN TIME 37.3 SECONDS (12.5-14.3)
[2021-01-03 00:55] LABS: PARTIAL THROMBOPLASTIN TIME 48.4 SECONDS (24.2-38.5)
[2021-01-03 01:42] LABS: D-DIMER QUANT > 4000 ng/ml (<500); FIBRINOGEN < 60 MG/DL (221-452)
[2021-01-03] MEDS ORDERED: ONDANSETRON 4MG/2ML VIAL IV PRN ×2 (01:50→03:15)
[2021-01-03] MEDS ORDERED: METOCLOPRAMIDE INJ 10MG/2ML VIAL (J2765 PER 1) IV PRN (01:50)
[2021-01-03] MEDS ORDERED: LR 1,000 ML IV SCH ×2 (01:50→03:14)
[2021-01-03] MEDS ORDERED: HYDROMORPHONE HCL 0.5 MG/ 0.5 ML SYRINGE (J1170 PER 1) IV PRN (01:50)
[2021-01-03] MEDS ORDERED: fentaNYL 100 MCG/2 ML INJECTION (J3010) IV PRN (01:50)
[2021-01-03] MEDS ORDERED: fentaNYL 100 MCG/2 ML INJECTION (J3010) As Ordered ONE (01:54)
[2021-01-03 02:53] LABS: INR 1.43; PROTHROMBIN TIME 17.8 SECONDS (12.5-14.3)
[2021-01-03 02:54] LABS: PARTIAL THROMBOPLASTIN TIME 30.6 SECONDS (24.2-38.5)
[2021-01-03] MEDS ORDERED: MORPHINE 4 MG/ML 1ML VIAL/SYRINGE (J2270) IV PRN (03:15)
[2021-01-03] MEDS ORDERED: MEASLES,MUMPS,RUBELLA VACCINE INJ (MMR-II) (90707) SC SCH (03:15)
[2021-01-03] MEDS ORDERED: CARBOPROST TROMETHAMINE 250 MCG/ML AMP IM PRN (03:15)
[2021-01-03] MEDS ORDERED: TRANEXAMIC ACID INJection 1,000 MG in NS 100 ML IV ONE (03:15)
[2021-01-03] MEDS ORDERED: RHOGAM 300 MCG (1500 IU) INJ (J2790) IM SCH (03:15)
[2021-01-03 03:20] LABS: HEMATOCRIT 33.9 % (36.0-47.0); HEMOGLOBIN 11.2 g/dl (12.0-15.5); MEAN CORPUSCULAR VOLUME 87.8 fl (80.0-96.0); PLATELET COUNT, AUTOMATED 139 10^3/uL (150-450); RED BLOOD COUNT 3.86 10^6/uL (4.00-5.40); WHITE BLOOD COUNT 24.6 10^3/uL (4.0-10.0)
[2021-01-03] MEDS ORDERED: CARBOPROST TROMETHAMINE 250 MCG/ML AMP As Ordered ONE (03:49)
--- NOTE | 2021-01-03 05:26 | ROOPDOC ---
[facility] Report Of Operation Report of Operation DATE OF PROCEDURE: 01/03/21 PREPROCEDURE DIAGNOSES: hemorrhage POSTPROCEDURE DIAGNOSES: Same PROCEDURE: Peripartum hysterectomy (supracervical; bilateral ovarian retention) SURGEON: Sammy Meng DO FURNACE STOCK INSPECTOR: Micheal Kumar DO ANESTHESIA: General ETA ESTIMATED BLOOD LOSS: Intraoperative 1200 mL. (total EBL: 3200 mL) IV FLUIDS: 1400 mL LR. COMPLICATIONS: D.I.C. (see [employer] for lab values) BLOOD PRODUCTS ADMINISTERED: 5 units prbc, 1 unit FFP, 1 unit platelets. DESCRIPTION OF PROCEDURE: The patient was consented on the risks, benefits, indications and alternatives of the procedure and informed consent was obtained. She was emergently transferred to the operating room. General anesthesia was administered and the airway was secured without any difficulty. She was placed in the low lithotomy position. She was prepared and draped in a normal sterile fashion. A time out was performed per protocol. Attention was turned to the pelvis. A Bakri balloon was placed per guidelines. This device was ultimately noted to be ineffective at controlling the bleeding from the uterus. The patient's hemodynamic status was noted to be deteriorating so the decision was made to proceed with the peripartum hysterectomy. A Pfannenstiel skin incision was made with the 10 blade. The dissection was continued down to the rectus sheath fascia. The rectus sheath fascia was incised midline and extended with manual stretch. The peritoneum was identified. The peritoneum was entered digitally, and extended manually. The uterus was exteriorized. The round ligaments were clamped, transected and suture ligated bilaterally. The vesicouterine peritoneum was dissected to create a bladder flap /to mobilize the bladder caudad. The right and left utero-ovarian ligaments were clamped, transected and suture ligated. The uterine vessels on both sides were skeletonized using sharp dissection with the Metzenbaum scissors and Bovie cautery. The right and left uterine vessels were sequentially clamped at the level of the internal os of the cervix, then transected and suture ligated. The uterus was then amputated at the level of the internal os of the cervix. The remaining cervical stump was suture-ligated with 0 Vicryl using several [id number] stitches. Excellent hemostasis was noted. The abdominal cavity was irrigated. Marquise was placed over the surgical pedicles. Excellent hemostasis was again noted. The patient's hemodynamic status was noted to be improved. The peritoneum was closed with 3-0 Vicryl in running fashion. The rectus muscle bellies were reapproximated with 3-0 Vicryl using interrupted stitches. The rectus sheath fascia was closed with 0 Vicryl running fashion. The subcutaneous layer was closed with 3-0 Vicryl in running fashion. The skin was closed with 4-0 Monocryl in subcuticular fashion. Pressure bandage was placed over the closed incision. The patient was extubated and transferred to the PACU in stabilized condition. DO KARLI Roger JONATHAN R. DO Jan 03, 2021 05:26
[2021-01-03] MEDS: PERCOCET 5MG/325MG TAB PO PRN ×3 (05:59→18:48)
[2021-01-03] MEDS ORDERED: PRENATAL VITAMINS CHEWABLE TABLET PO SCH (09:00)
[2021-01-03] MEDS ORDERED: BUSP1TAB PO (09:08)
[2021-01-03] MEDS ORDERED: PANT20TA6 PO (09:08)
[2021-01-03] MEDS ORDERED: FLUO20CA22 PO (09:08)
[2021-01-03] MEDS ORDERED: FLUO10CA16 PO (09:08)
[2021-01-03] MEDS: DOCUSATE SODIUM 100MG CAPSULE PO SCH ×2 (09:20→21:24)
[2021-01-03] MEDS: PRENATAL VITAMINS CHEWABLE TABLET PO SCH (09:20)
[2021-01-03] MEDS: busPIRone 5 MG TAB PO SCH ×2 (09:20→21:33)
[2021-01-03 09:37] LABS: HEMATOCRIT 25.8 % (36.0-47.0); MEAN CORPUSCULAR HEMOGLOBIN 29.1 pg (27.0-33.0); MEAN CORPUSCULAR HGB CONC 33.3 g/dl (32.0-36.5); MEAN CORPUSCULAR VOLUME 87.2 fl (80.0-96.0); PLATELET COUNT, AUTOMATED 130 10^3/uL (150-450); RED BLOOD COUNT 2.96 10^6/uL (4.00-5.40); WHITE BLOOD COUNT 23.4 10^3/uL (4.0-10.0)
[2021-01-03 09:42] LABS: HEMOGLOBIN 8.6 g/dl (12.0-15.5)
[2021-01-03 09:46] LABS: INR 1.09; PROTHROMBIN TIME 14.3 SECONDS (12.5-14.3)
[2021-01-03 09:47] LABS: PARTIAL THROMBOPLASTIN TIME 26.2 SECONDS (24.2-38.5)
[2021-01-03 10:09] LABS: ALBUMIN 1.5 GM/DL (3.2-5.2); ALT/SGPT 12 U/L (12-78); BILIRUBIN,TOTAL 0.7 MG/DL (0.2-1.0); BLOOD UREA NITROGEN 14 MG/DL (7-18); CALCIUM LEVEL 7.1 MG/DL (8.5-10.1); CARBON DIOXIDE LEVEL 21 MEQ/L (21-32); CHLORIDE LEVEL 108 MEQ/L (98-107); GLOMERULAR FILTRATION RATE > 60.0 (>60); GLUCOSE, FASTING 94 MG/DL (70-100); MAGNESIUM LEVEL 1.4 MG/DL (1.8-2.4); POTASSIUM SERUM 5.2 MEQ/L (3.5-5.1); SODIUM LEVEL 136 MEQ/L (136-145); TOTAL PROTEIN 3.4 GM/DL (6.4-8.2)
[2021-01-03] MEDS ORDERED: MAG SULF 1GM/100ML (MAG RUN) 1 GM in IV 1 EA IV ONE (11:00)
[2021-01-03] MEDS ORDERED: LR 1,000 ML IV ONE (11:00)
[2021-01-03] MEDS: FLUoxetine 10 MG CAP PO SCH (11:43)
[2021-01-03] MEDS: ceFAZolin SOD 2 GM in IV 1 EA IV SCH ×3 (13:09→23:38)
[2021-01-03] MEDS ORDERED: LACTATED RINGER'S 1000 ML IV ONE ×2 (15:45→16:10)
[2021-01-03] MEDS: KETOROLAC 30 MG/ML 1ML VIAL IV SCH (19:26)
[2021-01-03] MEDS: FLUoxetine 20 MG CAP PO SCH (21:24)
[2021-01-04] VITALS (18 sets, daily range): BP systolic 95–122; BP diastolic 47–61
[2021-01-04] MEDS: KETOROLAC 30 MG/ML 1ML VIAL IV SCH ×4 (01:41→20:27)
[2021-01-04] MEDS: ceFAZolin SOD 2 GM in IV 1 EA IV SCH ×4 (04:55→23:03)
[2021-01-04] MEDS: SIMETHICONE 80MG CHEW TAB PO PRN ×4 (04:59→20:28)
[2021-01-04] MEDS: PERCOCET 5MG/325MG TAB PO PRN ×2 (05:14→18:18)
[2021-01-04 08:13] LABS: MEAN CORPUSCULAR HEMOGLOBIN 29.3 pg (27.0-33.0); MEAN CORPUSCULAR HGB CONC 32.6 g/dl (32.0-36.5); MEAN CORPUSCULAR VOLUME 89.8 fl (80.0-96.0); PLATELET COUNT, AUTOMATED 125 10^3/uL (150-450); RED BLOOD COUNT 2.05 10^6/uL (4.00-5.40); WHITE BLOOD COUNT 13.9 10^3/uL (4.0-10.0)
[2021-01-04 08:18] LABS: HEMATOCRIT 18.4 % (36.0-47.0)
[2021-01-04] MEDS ORDERED: INFLUENZA QUADRIVALENT PF VACCINE 0.5ML SYRINGE IM ONE (09:00)
[2021-01-04] MEDS: DOCUSATE SODIUM 100MG CAPSULE PO SCH ×2 (09:07→20:28)
[2021-01-04] MEDS: busPIRone 5 MG TAB PO SCH ×2 (09:07→20:28)
[2021-01-04] MEDS: PRENATAL VITAMINS CHEWABLE TABLET PO SCH (09:07)
[2021-01-04] MEDS ORDERED: diphenhydrAMINE 25MG CAP PO ONE (09:30)
[2021-01-04] MEDS ORDERED: ACETAMINOPHEN TAB 650MG DOSE (2X325MG) PO ONE (09:30)
[2021-01-04] MEDS: SLF 3 ML SYR IV PRN ×2 (10:21→18:05)
[2021-01-04] MEDS: FLUoxetine 10 MG CAP PO SCH (11:17)
--- NOTE | 2021-01-04 12:12 | IPNPDOC ---
Progress Note Date of Service: Jan 04, 2021 Progress Note PPD/POD#1 Status post c/b PPH that ultimately led to peripartum hysterectomy. Complicated by Disseminated Intravascular Coagulopathy. Received 5Uprbc, 1U FFP, 1U plts. Transferred from the ICU yesterday evening to unit. SUBJECTIVE: She has been out of bed to chair and tolerating small amounts of regular diet. Vaginal bleeding decreasing/minimal. Pain is overall well-controlled. Denies headache, visual changes, right upper quadrant pain, shortness breath or chest pain. Only complaint is abdominal bloating/gas pain. Pt has yet to pass flatus and she feels some mild discomfort with "gas moving through but not out". OBJECTIVE: VITAL SIGNS: Currently within normal limits, normal HR afebrile. UOP: adequate (>100ml/hr) Alert and oriented times three. H: RRR no m/g/r] L: CTA b/l no w/c/r/r Ext: non-edematous, nontender, SCD's on/functioning. Abdomen: Distended, no guarding/rebound tenderness. Normal bowel sounds. Band age not soaked through. See labs below: h/h 04/13 ASSESSMENT: Status post complicated spontaneous vaginal delivery --> PPH --> peripartum hysterectomy. Vitals within normal limits, afebrile, hemodynamically stable with no current evidence of infection. Good pain control. Significant postoperative anemia. Coagulation lab indices much improved (DIC corrected). Normal renal function. PLAN: -Toradol and Percocet for pain control. -Continue Ancef 2g q6h -Transfuse 3U prbc; repeat CBC, Coag panel after completion of 3rd unit. -Continue postoperative advancement; regular diet, ambulation, removal of Rodrigues (later this afternoon/evening). Sammy Calvillo DO VS, I&O, 24H, Delmis Vital Signs/I&O Vital Signs Date Time Temp Pulse Resp B/P (MAP) Pulse Ox O2 Delivery O2 Flow Rate FiO2 01/04/21 11:20 98.9 96 16 101/49 96 Room Air 01/03/21 06:00 2.0 I&O- Last 24 Hours up to 6 AM 01/04/21 05:59 Intake Total 4440.0 ml Output Total 1610 ml Balance 2830.0 ml Laboratory Data 24H LABS Laboratory Tests 2 01/04/21 07:53: Nucleated Red Blood Cells % (auto) 0.0 CBC/BMP Laboratory Tests 01/04/21 07:53 BETTIE CALVILLO 11, 2021 12:12
[2021-01-04] MEDS: SLF 3 ML SYR IV SCH ×2 (14:36→22:00)
[2021-01-04 20:20] LABS: HEMATOCRIT 27.9 % (36.0-47.0); MEAN CORPUSCULAR HEMOGLOBIN 29.8 pg (27.0-33.0); MEAN CORPUSCULAR HGB CONC 34.1 g/dl (32.0-36.5); MEAN CORPUSCULAR VOLUME 87.5 fl (80.0-96.0); PLATELET COUNT, AUTOMATED 136 10^3/uL (150-450); RED BLOOD COUNT 3.19 10^6/uL (4.00-5.40); WHITE BLOOD COUNT 13.7 10^3/uL (4.0-10.0)
[2021-01-04 20:21] LABS: HEMOGLOBIN 9.5 g/dl (12.0-15.5)
[2021-01-04] MEDS: FLUoxetine 20 MG CAP PO SCH (20:28)
[2021-01-04 20:34] LABS: INR 0.92; PROTHROMBIN TIME 12.5 SECONDS (12.5-14.3)
[2021-01-04 20:35] LABS: PARTIAL THROMBOPLASTIN TIME 26.9 SECONDS (24.2-38.5)
[2021-01-04 20:55] LABS: ALBUMIN 1.6 GM/DL (3.2-5.2); ALT/SGPT 12 U/L (12-78); BILIRUBIN,TOTAL 0.1 MG/DL (0.2-1.0); BLOOD UREA NITROGEN 17 MG/DL (7-18); CALCIUM LEVEL 7.8 MG/DL (8.5-10.1); CARBON DIOXIDE LEVEL 24 MEQ/L (21-32); CHLORIDE LEVEL 109 MEQ/L (98-107); CREATININE FOR GFR 0.68 MG/DL (0.55-1.30); GLOMERULAR FILTRATION RATE > 60.0 (>60); GLUCOSE, FASTING 93 MG/DL (70-100); MAGNESIUM LEVEL 1.8 MG/DL (1.8-2.4); POTASSIUM SERUM 3.7 MEQ/L (3.5-5.1); SODIUM LEVEL 140 MEQ/L (136-145); TOTAL PROTEIN 3.9 GM/DL (6.4-8.2)
[2021-01-05 02:00] VITALS: BP 117/56
[2021-01-05] MEDS: KETOROLAC 30 MG/ML 1ML VIAL IV SCH (02:02)
[2021-01-05] MEDS: PERCOCET 5MG/325MG TAB PO PRN ×4 (03:24→21:30)
[2021-01-05] MEDS: SLF 3 ML SYR IV SCH ×3 (05:07→21:13)
[2021-01-05] MEDS: ceFAZolin SOD 2 GM in IV 1 EA IV SCH (05:07)
[2021-01-05 06:00] VITALS: BP 115/70
[2021-01-05] MEDS: PRENATAL VITAMINS CHEWABLE TABLET PO SCH (09:00)
[2021-01-05] MEDS: DOCUSATE SODIUM 100MG CAPSULE PO SCH ×2 (09:00→21:29)
[2021-01-05] MEDS: busPIRone 5 MG TAB PO SCH ×2 (09:00→21:29)
[2021-01-05] MEDS ORDERED: INFLUENZA QUADRIVALENT PF VACCINE 0.5ML SYRINGE IM ONE (09:00)
[2021-01-05] MEDS: FLUoxetine 10 MG CAP PO SCH (09:00)
[2021-01-05] MEDS: SIMETHICONE 80MG CHEW TAB PO PRN ×2 (09:03→18:02)
[2021-01-05 10:00] VITALS: BP 103/66
[2021-01-05] MEDS: IBUPROFEN 800 MG TAB PO PRN (13:37)
[2021-01-05 14:00] VITALS: BP 123/72
[2021-01-05 18:00] VITALS: BP 118/63
[2021-01-05] MEDS: FLUoxetine 20 MG CAP PO SCH (21:33)
[2021-01-05 22:00] VITALS: BP 133/74
[2021-01-06 02:00] VITALS: BP 124/74
[2021-01-06] MEDS: PERCOCET 5MG/325MG TAB PO PRN ×2 (03:35→08:09)
[2021-01-06] MEDS: IBUPROFEN 800 MG TAB PO PRN (05:51)
[2021-01-06 06:00] VITALS: BP 107/61
[2021-01-06] MEDS: SLF 3 ML SYR IV SCH (06:13)
[2021-01-06] MEDS: DOCUSATE SODIUM 100MG CAPSULE PO SCH (08:08)
[2021-01-06] MEDS: PRENATAL VITAMINS CHEWABLE TABLET PO SCH (08:08)
[2021-01-06] MEDS: busPIRone 5 MG TAB PO SCH (08:08)
[2021-01-06] MEDS: SIMETHICONE 80MG CHEW TAB PO PRN (08:08)
[2021-01-06] MEDS: FLUoxetine 10 MG CAP PO SCH (08:08)
[2021-01-06 08:14] VITALS: BP 107/61
--- NOTE | 2021-01-06 09:23 | DSES ---
DISCHARGE SUMMARY DATE OF ADMISSION: 01/02/2021 DATE OF DISCHARGE: 01/06/2021 DISCHARGE DIAGNOSIS: Spontaneous vaginal delivery at term complicated by a hemorrhage with a hysterectomy. Postop day #3, stable condition. SURGEON: BETTIE MENG DO HISTORY: Yani is a 30-year-old 4 para 4-0-0-4 now who was admitted on 01/02/2021 for an induction of labor due to polyhydramnios and discomfort. She progressed quickly through her labor. She had a spontaneous vaginal delivery of a live male infant weighing 3600 grams, 7 pounds, 15 ounces, Apgars were 6 and 7. Her vaginal delivery was then complicated by a hemorrhage with an estimated blood loss of 200 ml. The decision was made to do a hysterectomy. Her surgery continued to be complicated by an additional 1200 ml blood loss for a total of 3200 ml blood loss. She had a supracervical abdominal hysterectomy. Her course has been complicated by severe anemia. She did receive a total of 8 red blood cells packed units, one fresh frozen plasma and one platelets, five initially in the OR and three on postop day #1. She has been out of bed for personal hygiene and showers. She has ambulated in the room. She is tolerating a regular diet and p.o. fluids. She is voiding without difficulty. She is passing flatus but denies bowel movement at this time. Her only complaint seems to be severe bilateral edema of her lower extremities. She is being managed with p.o. pain medications and she is caring for her infant with her mother's assistance. OBJECTIVE: Temperature is 98.6, pulse is 77, respirations are 14, BP is 107/61. She is alert and oriented x3. She appears somewhat pale but comfortable. Her abdomen is with incision very well-approximated. Steri-Strips are dry and intact. There is no drainage, no redness, no edema. Her perineum is intact. There is no edema. No hematoma and there is very scant bleeding noted on her moise-pad. Bilateral lower extremities with significant +2 pitting edema. Most recent CBC on 01/04/2021 at 2002 hemoglobin of 9.5, hematocrit 27.9, platelets 136,000. Coag's are rebounding. PT is 12.5, PTT is 269. Fibrinogen is 329. PLAN: Per consult with Dr. Bettie Meng, the patient may be discharged home today. She is to be seen in the office for a two week incision check and an eight week visits. Her medications have been prescribed for Percocet one to two tablets every 4 hours as needed for pain, Ibuprofen 800 mg one tablet every 8 hours and ferrous sulfate 325 mg one tablet three times a day. I did review discharge instructions that include breast care, incision care, moise-care, pelvic rest, activity and lifting restrictions, access to her care provider as well as danger signs that should be reported. The patient and the patient's mother have had all of their questions and do desire discharge home today.
[2021-01-11] MEDS ORDERED: OXYC1TAB23 PO (16:38)
== END 2021-01-06 11:25 | disposition home or self-care (01) | DRG 542 ==
LOC: M LDI 07:21 → M ICU 01-03 02:46 → M OBS 01-03 20:50
PROVIDERS: ADMIT Obstetrics & Gynecology; ATTEND Obstetrics & Gynecology
PROC: 3E0P7GC Introduction of Other Therapeutic Substance into Female Reproductive, Via Natural or Artificial Opening (ICD-10-PCS; 2021-01-02)
PROC: 0UT90ZZ Resection of Uterus, Open Approach (ICD-10-PCS; 2021-01-02)
PROC: 30233N1 Transfusion of Nonautologous Red Blood Cells into Peripheral Vein, Percutaneous Approach (ICD-10-PCS; 2021-01-02)
PROC: 0UTC0ZZ Resection of Cervix, Open Approach (ICD-10-PCS; 2021-01-02)
PROC: 10E0XZZ Delivery of Products of Conception, External Approach (ICD-10-PCS; principal; 2021-01-02 21:49)
DX: O40.3XX0 Polyhydramnios, third trimester, not applicable or unspecified (principal); D65 Disseminated intravascular coagulation [defibrination syndrome]; O72.1 Other immediate postpartum hemorrhage; O99.12 Other diseases of the blood and blood-forming organs and certain disorders involving the immune mechanism complicating childbirth; Z3A.38 38 weeks gestation of pregnancy; O99.344 Other mental disorders complicating childbirth; O99.02 Anemia complicating childbirth; D64.9 Anemia, unspecified; F32.9 Major depressive disorder, single episode, unspecified; F41.9 Anxiety disorder, unspecified; Z37.0 Single live birth

== ENCOUNTER → 2021-03-01 | Outpatient (REF) | payer OTHER ==
[~2021-03-01] MED LIST changes: +FLUO10CA16 PO; +FLUO20CA22 PO; +OXYC1TAB23 PO; +PANT20TA6 PO; +TUMS750C22 PO
== END ==
LOC: M SFHCWAGY 15:05
PROVIDERS: ATTEND Obstetrics & Gynecology
DX: Z12.4 Encounter for screening for malignant neoplasm of cervix (principal)

== ENCOUNTER → 2022-04-25 | Outpatient (CLI) | payer OTHER ==
[~2022-04-25] MED LIST changes: -FLUO10CA16 PO; +FLUO10CA18 PO
[2022-04-25 09:58] LABS: BASO # 0.1 10^3/uL (0.0-0.2); EOS # 0.3 10^3/uL (0.0-0.5); EOS % 5.6 % (0.0-3.0); HEMATOCRIT 41.5 % (36.0-47.0); HEMOGLOBIN 14.2 g/dl (12.0-15.5); LYMPH # 1.8 10^3/uL (1.5-5.0); LYMPH % 30.1 % (24.0-44.0); MEAN CORPUSCULAR HEMOGLOBIN 31.5 pg (27.0-33.0); MEAN CORPUSCULAR HGB CONC 34.2 g/dl (32.0-36.5); MONO # 0.6 10^3/uL (0.0-0.8); MONO % 9.6 % (2.0-8.0); NEUTROPHILS # 3.2 10^3/uL (1.5-8.5); NEUTROPHILS % 53.4 % (36.0-66.0); PLATELET COUNT, AUTOMATED 216 10^3/uL (150-450); RED BLOOD COUNT 4.51 10^6/uL (4.00-5.40); WHITE BLOOD COUNT 5.9 10^3/uL (4.0-10.0)
[2022-04-25 10:20] LABS: ERYTHROCYTE SEDIMENTATION RATE 7 mm/hr (0-20)
[2022-04-25 10:40] LABS: ALBUMIN 4.3 GM/DL (3.2-5.2); ALT/SGPT 20 U/L (12-78); BILIRUBIN,TOTAL 0.7 MG/DL (0.2-1.0); BLOOD UREA NITROGEN 17 MG/DL (7-18); CALCIUM LEVEL 9.3 MG/DL (8.5-10.1); CARBON DIOXIDE LEVEL 26 MEQ/L (21-32); CHLORIDE LEVEL 106 MEQ/L (98-107); CREATININE FOR GFR 0.69 MG/DL (0.55-1.30); GLOMERULAR FILTRATION RATE > 60.0 (>60); GLUCOSE, FASTING 86 MG/DL (70-100); POTASSIUM SERUM 4.5 MEQ/L (3.5-5.1); RHEUMATOID FACTOR QUANT < 10.0 IU/ML (<15.0); SODIUM LEVEL 138 MEQ/L (136-145); THYROID STIMULATING HORMONE 0.479 uIU/ML (0.358-3.740); TOTAL PROTEIN 7.7 GM/DL (6.4-8.2)
[2022-04-25 11:56] LABS: TOTAL 25(OH) VITAMIN D 30.1 NG/ML (30.0-100.0)
[2022-04-26 14:11] LABS: ANTINUCLEAR ANTIBODIES DIRECT Negative (Negative)
== END ==
LOC: M LAB 08:44
PROVIDERS: ATTEND Psychiatry & Neurology Neurology
DX: R51.9 Headache, unspecified (principal)

== ENCOUNTER → 2023-03-13 | Outpatient (CLI) | payer OTHER | LOC: M RAD 16:46 | PROVIDERS: ATTEND Physician Assistant | DX: M54.9 Dorsalgia, unspecified (principal) ==

== ENCOUNTER → 2023-03-14 | Outpatient (CLI) | payer OTHER | LOC: M RAD 08:40 | PROVIDERS: ATTEND Physician Assistant | DX: M54.59 Other low back pain (principal) ==

== ENCOUNTER → 2023-06-09 | Outpatient (CLI) | payer OTHER | LOC: M RAD 16:16 | PROVIDERS: ATTEND Physician Assistant Medical | DX: M79.672 Pain in left foot (principal) ==

== ENCOUNTER 2024-05-29 15:59 | Emergency (ER) | payer OTHER ==
[~2024-05-29] VITALS: Ht 142.2 cm; Wt 54.1 kg
[~2024-05-29 15:59] MED LIST changes: +FLUO-290 PO; +FLUO-365 PO; -FLUO10CA18 PO; -FLUO20CA22 PO
[2024-05-29] MEDS: CYCLOBENZAPRINE 10MG TABLET PO ONE (18:31)
[2024-05-29] MEDS: KETOROLAC 30 MG/ML 1ML VIAL IM ONE (18:31)
[2024-05-29 18:55] LABS: BASO % 0.5 % (0.0-1.0); EOS # 0.1 10^3/uL (0.0-0.5); EOS % 0.7 % (0.0-3.0); HEMATOCRIT 40.6 % (36.0-47.0); HEMOGLOBIN 14.2 g/dl (12.0-15.5); LYMPH # 1.4 10^3/uL (1.5-5.0); LYMPH % 16.7 % (24.0-44.0); MEAN CORPUSCULAR HEMOGLOBIN 31.8 pg (27.0-33.0); MEAN CORPUSCULAR VOLUME 90.8 fl (80.0-96.0); MONO # 0.7 10^3/uL (0.0-0.8); MONO % 8.8 % (2.0-8.0); NEUTROPHILS # 6.1 10^3/uL (1.5-8.5); NEUTROPHILS % 72.9 % (36.0-66.0); PLATELET COUNT, AUTOMATED 225 10^3/uL (150-450); RED BLOOD COUNT 4.47 10^6/uL (4.00-5.40); WHITE BLOOD COUNT 8.4 10^3/uL (4.0-10.0)
[2024-05-29 19:21] LABS: HCG, SERUM QUALITATIVE NEGATIVE (NEGATIVE)
[2024-05-29 19:22] LABS: ALBUMIN 4.2 G/DL (3.2-5.2); ALKALINE PHOSPHATASE 72 U/L (46-116); ALT/SGPT 14 U/L (7.0-40); AST/SGOT < 8 U/L (<34); BILIRUBIN,TOTAL 0.6 MG/DL (0.3-1.2); BLOOD UREA NITROGEN 9 MG/DL (9-23); CALCIUM LEVEL 8.7 MG/DL (8.5-10.1); CARBON DIOXIDE LEVEL 25 MMOL/L (20-31); CHLORIDE LEVEL 107 MMOL/L (98-107); CREATININE FOR GFR 0.58 MG/DL (0.55-1.30); GLOMERULAR FILTRATION RATE > 60.0 (>60); GLUCOSE, FASTING 90 MG/DL (60-100); POTASSIUM SERUM 4.2 MMOL/L (3.5-5.1); SODIUM LEVEL 138 MMOL/L (136-145); TOTAL PROTEIN 7.3 G/DL (5.7-8.2)
[2024-05-29] MEDS ORDERED: CYCL-707 PO (21:46)
[2024-05-29] MEDS ORDERED: KETO10TAB PO (21:46)
[2024-05-29 22:12] VITALS: BP 128/81; TEMP 98.5; O2SAT 100
== END 2024-05-29 22:23 | disposition home or self-care (01) ==
LOC: M ED 15:59
DX: M54.50 Low back pain, unspecified (principal); F10.10 Alcohol abuse, uncomplicated; Z88.2 Allergy status to sulfonamides; Z79.810 Long term (current) use of selective estrogen receptor modulators (SERMs); Z79.899 Other long term (current) drug therapy
CPT/HCPCS: 72131; 80053; 81001; 84703; 85025; 86140; 96372; 99283; J1885

== ENCOUNTER → 2025-05-12 | Outpatient (REF) | payer OTHER ==
[~2025-05-12] MED LIST changes: +CYCL-707 PO; +KETO10TAB PO
[2025-05-12 19:49] LABS: Trichomonas vaginalis (AMP) NOT DETECTED (NEGATIVE)
[2025-05-12 20:13] LABS: GC DNA AMPLIFICATION NEGATIVE (NEGATIVE)
== END ==
LOC: M LAB REF 17:17
PROVIDERS: ATTEND Physician Assistant
DX: R39.15 Urgency of urination (principal)

== ENCOUNTER → 2025-05-30 | Outpatient (CLI) | payer OTHER ==
[~2025-05-30] MED LIST changes: -PROZ20CA11 PO; +PROZ20CA12 PO
== END ==
LOC: M RAD 12:20
PROVIDERS: ATTEND Student in an Organized Health Care Education/Training Program
DX: M54.6 Pain in thoracic spine (principal); Z53.9 Procedure and treatment not carried out, unspecified reason

== ENCOUNTER → 2025-06-17 | Outpatient (REF) | payer OTHER ==
[2025-06-17 12:43] LABS: PLATELET COUNT, AUTOMATED 222 10^3/uL (150-450)
[2025-06-17 12:52] LABS: ALT/SGPT 18 U/L (7.0-40); AST/SGOT 14 U/L (<34); CALCIUM LEVEL 9.3 MG/DL (8.5-10.1); CARBON DIOXIDE LEVEL 28 MMOL/L (20-31); CHLORIDE LEVEL 104 MMOL/L (98-107); CHOLESTEROL LEVEL 165 MG/DL (<200); CHOLESTEROL RISK RATIO 2.78 (<5); CREATININE FOR GFR 0.69 MG/DL (0.55-1.30); GLOMERULAR FILTRATION RATE > 90.0 (>60); LDL CHOLESTEROL 83.4 MG/DL (<100); NON-HDL-C 105.8 MG/DL; POTASSIUM SERUM 4.1 MMOL/L (3.5-5.1); SODIUM LEVEL 141 MMOL/L (136-145); TRIGLYCERIDES LEVEL 112 MG/DL (<150)
[2025-06-17 12:56] LABS: TOTAL 25(OH) VITAMIN D 30.4 NG/ML (20.0-100.0)
[2025-06-17 14:17] LABS: ESTIMATED AVERAGE GLUCOSE 88.0 MG/DL (60-110)
== END ==
LOC: M LAB REF 11:58
PROVIDERS: ATTEND Student in an Organized Health Care Education/Training Program
DX: E55.9 Vitamin D deficiency, unspecified (principal); Z68.26 Body mass index [BMI] 26.0-26.9, adult

== ENCOUNTER → 2025-07-12 | Outpatient (CLI) | payer OTHER | LOC: M PLAIMG 09:14 | PROVIDERS: ATTEND Physical Medicine & Rehabilitation Pain Medicine | DX: M47.816 Spondylosis without myelopathy or radiculopathy, lumbar region (principal); M51.A0 Intervertebral annulus fibrosus defect, lumbar region, unspecified size; D18.09 Hemangioma of other sites ==